=== PATIENT | male | born 1990 | race Caucasian/White ===

== ENCOUNTER 2020-05-19 18:51 | Emergency (ER) | payer OTHER, SELFPAY ==
[~2020-05-19] VITALS: Ht 180.3 cm; Wt 72.7 kg
[2020-05-19] MEDS ORDERED: VENTAER INH (18:56)
[2020-05-19] MEDS ORDERED: ASPI81TA86 PO (18:56)
[2020-05-19 19:44] LABS: BASO % 0.3 % (0.0-1.0); EOS # 0.1 10^3/uL (0.0-0.5); EOS % 0.5 % (0.0-3.0); HEMATOCRIT 48.1 % (42.0-52.0); HEMOGLOBIN 16.7 g/dl (13.5-17.5); LYMPH # 2.7 10^3/uL (1.5-5.0); LYMPH % 19.6 % (24.0-44.0); MEAN CORPUSCULAR HEMOGLOBIN 30.9 pg (27.0-33.0); MEAN CORPUSCULAR HGB CONC 34.7 g/dl (32.0-36.5); MEAN CORPUSCULAR VOLUME 88.9 fl (80.0-96.0); MONO % 7.2 % (0.0-5.0); NEUTROPHILS # 9.7 10^3/uL (1.5-8.5); PLATELET COUNT, AUTOMATED 271 10^3/uL (150-450); RED BLOOD COUNT 5.41 10^6/uL (4.30-6.10); WHITE BLOOD COUNT 13.5 10^3/uL (4.0-10.0)
[2020-05-19 20:00] LABS: BLOOD UREA NITROGEN 10 MG/DL (7-18); CALCIUM LEVEL 9.7 MG/DL (8.5-10.1); CARBON DIOXIDE LEVEL 27 MEQ/L (21-32); CHLORIDE LEVEL 106 MEQ/L (98-107); CK-MB VALUE MASS < 1.0 NG/ML (<3.6); CPK CREATINE PHOSPHOKINASE 100 U/L (39-308); GLOMERULAR FILTRATION RATE > 60.0 (>60); GLUCOSE, FASTING 96 MG/DL (70-100); POTASSIUM SERUM 3.5 MEQ/L (3.5-5.1); SODIUM LEVEL 141 MEQ/L (136-145)
[2020-05-19 21:33] VITALS: BP 137/91
--- NOTE | 2020-06-02 08:13 | ECGEPIP ---
[facility] [place] - ED Test Date: 2020-05-19 Pat Name: JETT GHOSH Department: Room: - Gender: Male Caddie Supervisor: miriam : 1990 Requested By: EMILY Simon Order Number: [id number] Reading MD: Benito Cotton Measurements Intervals [place] Rate: 69 P: 72 GA: 135 QRS: 58 QRSD: 88 T: 42 QT: 362 QTc: 390 Interpretive Statements SINUS RHYTHM WITH SINUS ARRHYTHMIA SEE SCANNED DOWNTIME REPORT
--- NOTE | 2020-06-17 16:06 | REP ---
PORTABLE CHEST X-RAY CLINICAL: Chest pain. COMPARISON: None. FINDINGS: Mediastinum and cardiac silhouette are normal. Lung young are relatively clear and without focal consolidation, effusion, or pneumothorax. Subtle nodular density in the periphery of the right mid lung zone is suggested. No prior examinations are available for comparison and chest CT may be warranted for further investigation. IMPRESSION: * No focal consolidation or effusion. * Cannot exclude small nodular density in the periphery of the right mid lung zone. No prior exam for comparison. Consider chest CT followup. MTDD
== END 2020-05-19 21:47 | disposition home or self-care (01) ==
LOC: M ED 18:51
DX: R00.2 Palpitations (principal); R07.89 Other chest pain; R06.02 Shortness of breath; R11.2 Nausea with vomiting, unspecified; F17.210 Nicotine dependence, cigarettes, uncomplicated; F12.10 Cannabis abuse, uncomplicated; Z79.82 Long term (current) use of aspirin